=== PATIENT | female | born 2000 | race Two or more races ===

== ENCOUNTER 2020-05-01 17:53 | Outpatient (CLI) | payer OTHER ==
[2020-05-01 18:30] LABS: APPEARANCE,URINE SLIGHTLY-CLOUDY; BILIRUBIN,URINE NEGATIVE (NEGATIVE); COLOR,URINE YELLOW; GLUCOSE, URINE NEGATIVE (NEGATIVE); KETONES,URINE NEGATIVE (NEGATIVE); LEUKOCYTE ESTERASE,URINE NEGATIVE (NEGATIVE); NITRITE,URINE NEGATIVE (NEGATIVE); PROTEIN,URINE NEGATIVE (NEGATIVE); URINE SPECIFIC GRAVITY 1.019; UROBILINOGEN,URINE NEGATIVE mg/dL (<2.0)
[2020-05-01 18:44] LABS: URINE AMPHETAMINES SCREEN NEGATIVE; URINE BARBITURATES SCREEN NEGATIVE; URINE BENZODIAZEPINES SCREEN NEGATIVE; URINE COCAINE SCREEN NEGATIVE; URINE MARIJUANA (THC) SCREEN NEGATIVE; URINE METHADONE SCREEN NEGATIVE; URINE PHENCYCLIDINE SCREEN NEGATIVE
--- NOTE | 2020-05-01 20:42 | Non Stress Test Report ---
Non Stress Test Datetime Report Generated by CPN: 05/01/2020 20:41 DEMOGRAPHIC EGA NST: 40.0 INDICATION Indication for Study (NST) Other: Labor check VITAL SIGNS Temperature - NST: 99.3 Pulse - NST: 77 RESP - NST: 18 NBPSYS NST: 117 NBPDIA NST: 63 MONITORING Monitor Explained: Monitor Explained; Test Explained; Patient Verbalized Understanding Time on Monitor: 05/01/2020 18:10 Time off Monitor: 05/01/2020 18:36 NST Duration: 26 NST INTERVENTIONS NST Interventions: PO Hydration Physician Notified NST: Dr. Flores BABY A: [id number] BABY A Movement : Present Contraction Frequency : Irreg FHR Baseline : 140 Accelerations : 15X15 Decelerations : None Variability : Moderate 6-25bpm NST Review: Meets Criteria for Reactive NST NST Review and Verified By : Narcisa David RN NST Results: Reactive NST REPORT Report Trigger: Send Report
== END 2020-05-01 20:05 | disposition home or self-care (01) ==
LOC: LC 17:53
PROVIDERS: ATTEND Obstetrics & Gynecology Gynecology
DX: O47.1 False labor at or after 37 completed weeks of gestation (principal); Z3A.40 40 weeks gestation of pregnancy; Z88.0 Allergy status to penicillin
CPT/HCPCS: 59025; 80307; 81005

== ENCOUNTER 2020-05-02 04:16 | Outpatient (CLI) | payer OTHER ==
[2020-05-02 05:05] LABS: APPEARANCE,URINE CLEAR; BILIRUBIN,URINE NEGATIVE (NEGATIVE); COLOR,URINE YELLOW; GLUCOSE, URINE NEGATIVE (NEGATIVE); KETONES,URINE NEGATIVE (NEGATIVE); LEUKOCYTE ESTERASE,URINE NEGATIVE (NEGATIVE); NITRITE,URINE NEGATIVE (NEGATIVE); PROTEIN,URINE NEGATIVE (NEGATIVE); URINE SPECIFIC GRAVITY 1.011; UROBILINOGEN,URINE NEGATIVE mg/dL (<2.0)
[2020-05-02 05:26] LABS: URINE AMPHETAMINES SCREEN NEGATIVE; URINE BARBITURATES SCREEN NEGATIVE; URINE BENZODIAZEPINES SCREEN NEGATIVE; URINE COCAINE SCREEN NEGATIVE; URINE MARIJUANA (THC) SCREEN NEGATIVE; URINE METHADONE SCREEN NEGATIVE; URINE PHENCYCLIDINE SCREEN NEGATIVE
[2020-05-02] MEDS ORDERED: HYDROXYZINE PAMOATE 50 MG CAPSULE ONE (05:27)
[2020-05-02] MEDS ORDERED: HYDROXYZINE PAMOATE 50 MG CAPSULE PO ONE (05:30)
--- NOTE | 2020-05-02 05:46 | Non Stress Test Report ---
Non Stress Test Datetime Report Generated by CPN: 05/02/2020 05:45 DEMOGRAPHIC EGA NST: 40.1 INDICATION Indication for Study (NST) Other: IUP @ 40.1 wks VITAL SIGNS Temperature - NST: 96.9 Pulse - NST: 72 RESP - NST: 17 NBPSYS NST: 107 NBPDIA NST: 57 URINE RESULTS Urine Protein, NST: Negative Urine Ketones - NST: Negative Urine Glucose - NST: Negative Urine Blood - NST: Positive MONITORING Monitor Explained: Monitor Explained; Test Explained; Patient Verbalized Understanding Time on Monitor: 05/02/2020 04:34 Time off Monitor: 05/02/2020 05:26 NST Duration: 52 NST INTERVENTIONS NST Interventions: PO Hydration; Reposition Patient Physician Notified NST: Dr. Flores BABY A: [id number] BABY A Movement : Present Contraction Frequency : irregular FHR Baseline : 130 Accelerations : 15X15 Decelerations : None Variability : Moderate 6-25bpm NST Review: Meets Criteria for Reactive NST NST Review and Verified By : Alisson Medrano RN NST Results: Reactive NST REPORT Report Trigger: Send Report
== END 2020-05-02 05:45 | disposition home or self-care (01) ==
LOC: LC 04:16
PROVIDERS: ATTEND Obstetrics & Gynecology Gynecology
DX: O47.1 False labor at or after 37 completed weeks of gestation (principal); Z3A.40 40 weeks gestation of pregnancy; Z88.0 Allergy status to penicillin
CPT/HCPCS: 59025; 80307; 81005

== ENCOUNTER 2020-05-03 10:45 | Inpatient (IN) | payer OTHER ==
[2020-05-03 11:24] LABS: APPEARANCE,URINE SLIGHTLY-CLOUDY; BILIRUBIN,URINE NEGATIVE (NEGATIVE); COLOR,URINE YELLOW; GLUCOSE, URINE NEGATIVE (NEGATIVE); KETONES,URINE NEGATIVE (NEGATIVE); LEUKOCYTE ESTERASE,URINE TRACE (NEGATIVE); NITRITE,URINE NEGATIVE (NEGATIVE); PROTEIN,URINE NEGATIVE (NEGATIVE); URINE SPECIFIC GRAVITY 1.008; UROBILINOGEN,URINE NEGATIVE mg/dL (<2.0)
[2020-05-03 11:42] LABS: URINE AMPHETAMINES SCREEN NEGATIVE; URINE BARBITURATES SCREEN NEGATIVE; URINE BENZODIAZEPINES SCREEN NEGATIVE; URINE COCAINE SCREEN NEGATIVE; URINE MARIJUANA (THC) SCREEN NEGATIVE; URINE METHADONE SCREEN NEGATIVE; URINE PHENCYCLIDINE SCREEN NEGATIVE
[2020-05-03] MEDS ORDERED: RINGERS SOLUTION,LACTATED 1,000 ML IV PRN (12:17)
[2020-05-03] MEDS ORDERED: RINGERS SOLUTION,LACTATED 1,000 ML IV ONE (12:17)
[2020-05-03 13:03] LABS: ABSOLUTE LYMPHOCYTES (AUTO) 1.6 10^3/uL (0.5-4.7); ABSOLUTE MONOCYTES (AUTO) 0.5 10^3/uL (0.1-1.4); ABSOLUTE NEUT (AUTO) 7.4 10^3/uL (1.7-8.2); BASOPHILS % (AUTO) 0.4 % (0-2); EOSINOPHILS % (AUTO) 0.1 % (0-6); HEMATOCRIT 37.9 % (36.0-47.0); HEMOGLOBIN 13.1 g/dL (12.0-15.5); LYMPHOCYTES % (AUTO) 17.2 % (13-45); MEAN CORPUSCULAR HEMOGLOBIN 30.4 pg (27.0-33.4); MEAN CORPUSCULAR HGB CONC 34.6 g/dL (32.0-36.0); MEAN CORPUSCULAR VOLUME 88 fl (80-97); MONOCYTES % (AUTO) 5.7 % (3-13); PLATELET COUNT 211 10^3/uL (150-450); RED BLOOD COUNT 4.32 10^6/uL (3.72-5.28); RED CELL DISTRIBUTION WIDTH 15.1 % (11.5-14.0); SEGMENTED NEUTROPHILS % (AUTO) 76.6 % (42-78); TOTAL CELLS COUNTED % (AUTO) 100 %; WHITE BLOOD COUNT 9.6 10^3/uL (4.0-10.5)
[2020-05-03] MEDS ORDERED: OXYTOCIN 10 UNIT/ML VIAL ONE (14:22)
[2020-05-03] MEDS ORDERED: EPHEDRINE SULFATE INJ 50 MG/1 ML AMPULE ONE (14:22)
[2020-05-03] MEDS ORDERED: MISOPROSTOL 0.2 MG TABLET ONE (14:22)
[2020-05-03] MEDS ORDERED: OXYTOCIN/0.9 % SODIUM CHLORIDE 30 UNIT/500 ML RTUINJ ONE (14:23)
[2020-05-03] MEDS ORDERED: ROPIVACAINE HCL 0.2% INJ/PF (2 MG/ML) 20 ML SDV ONE (14:23)
[2020-05-03] MEDS ORDERED: FENTANYL/BUPIVACAINE/NS/PF 300 MCG/150 ML RTUINJ EPI ONE (14:23)
[2020-05-03] MEDS ORDERED: LIDOCAINE 1% INJ-PF (10 MG/ML) 30 ML SDV ONE (14:23)
--- NOTE | 2020-05-03 17:39 | Admission Physical ---
Datetime Report Generated by CPN: 05/03/2020 17:39 CURRENT ADMISSION Chief Complaint: Uterine Contractions; Suspected Ruptured Membranes Chief Complaint Other: G1 presented wtih contractions and during labor check time interval her water broke. Clear, large amount. Admit Impression : Term, Intrauterine ; Active Labor; Ruptured Membranes Admit Plan: Admit to Unit; Initiate Labor Protocol; Initiate Labor Induction Protocol ALLERGIES Medication Allergies: Yes Medication Allergies: Penicillins (05/02/2020) Latex: Unknown Food Allergies: n/a Environmental Allergies: n/a OBSTETRICAL HISTORY EDC: 05/01/2020 00:00 : 1 Para: 0 Term: 0 : 0 SAB: 0 IAB: 0 Ectopic: 0 Livin Multiple Births: 0 Gestational Diabetes: No Rh Sensitization: No Incompetent Cervix: No RAHEEM: No Infertility: No ART Treatment: No Uterine Anomaly: No IUGR: No Hx Previous C/S: No Macrosomia: No Hx Loss/Stillborn: No PIH: No Hx : No Placenta Previa/Abruption: No Depression/PP Depression: No PTL/PROM: No Post Hemorrhage: No Current Procedures: Ultrasound Obstetrical History Comments: g1- current SEE RECORDS Alcohol: No Marijuana : No Cocaine: No Other Illicit Drugs: No Cigarettes: Never Smoker. 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 Heart Disease: No Hosp/Surgery: No Autoimmune Disorder: No Anesthetic Complications: No Kidney Disease: No Abnormal Pap Smear: No Neuro/Epilepsy: No Psychiatric Disorders: No Other Medical Diseases: No Hepatitis/Liver Disease: No Significant Family History: No Varicosities/Phlebitis: No Trauma/Violence : No Thyroid Dysfunction: No Medical History Comments: bells palsy 2018 INFECTIOUS HISTORY Gonorrhea: No Genital Herpes: No Chlamydia: No Tuberculosis: No Syphilis: No Hepatitis: No HIV/AIDS Exposure: No Rash or Viral Illness: No HPV: No PHYSICAL EXAM General: Normal HEENT: Normal Neurologic: Normal Thyroid: Normal Heart: Normal Lungs: Normal Breast: Normal Back: Normal Abdomen: Normal Genitourinary Exam: Normal Extremities: Normal DTRs: Normal Pelvic Type: Adequate Vital Signs: Reviewed; Within Normal Limits VAGINAL EXAM Dilatation: 4 Effacement: 100 Station: -1 Contraction Comments: regular every 5-7 minutes MEMBRANES Membranes: Ruptured Amniotic Fluid Color: Clear FETUS A EGA: 40.2 Monitoring: External US FHR- Baseline: 155 Variability: Moderate 6-25bpm Accelerations: 15X15 Decelerations: None FHR Category: Category I Presentation: Vertex Admit Comment: G1 at 40.2 wks EGA in active labor iwth SROM, clear fluid -Admit to LDR -NPO and IVFs: LR bolus 1 liter and continue at 125cc/hr -CEFM and toco -SROM at 1309 -GBS negative -Desires Epidural for pain mgt -Anticipate PLANS FOR LABOR AND DELIVERY Labor and Delivery: None Pain Management: Epidural Feeding Preference: Breast Benefit of Breast Feed Discussed: Yes Circumcision: Yes INFORMED CONSENT Signature: with User ID: Morgan : with User ID: Morgan
[2020-05-03] MEDS ORDERED: MAGNESIUM HYDROXIDE SUSP 30 ML UDCUP PO PRN (20:49)
[2020-05-03] MEDS ORDERED: DIPHENHYDRAMINE HCL 25 MG CAPSULE PO PRN (20:49)
[2020-05-03] MEDS ORDERED: PROMETHAZINE HCL 25 MG TABLET PO PRN (20:49)
[2020-05-03] MEDS ORDERED: ACETAMINOPHEN 650 MG SUPP.RECT PR PRN (20:49)
[2020-05-03] MEDS ORDERED: PSEUDOEPHEDRINE HCL 30 MG TABLET PO PRN (20:49)
[2020-05-03] MEDS ORDERED: PROMETHAZINE HCL INJ 25 MG/1 ML VIAL IV PRN (20:49)
[2020-05-03] MEDS ORDERED: BENZOCAINE/MENTHOL AEROSOL SPRAY 56 ML TOP PRN (20:49)
[2020-05-03] MEDS ORDERED: PROMETHAZINE HCL 25 MG SUPP.RECT PR PRN (20:49)
[2020-05-03] MEDS ORDERED: MEASLES,MUMPS&RUBELLA VACC/PF 0.5 ML VIAL SUBCUT PRN (20:49)
[2020-05-03] MEDS ORDERED: ACETAMINOPHEN WITH CODEINE #3 TABLET PO PRN ×2 (20:49)
[2020-05-03] MEDS ORDERED: DIBUCAINE 1% OINTMENT 28 GM TP PRN (20:49)
[2020-05-03] MEDS ORDERED: NA PHOS,M-B/NA PHOS,DI-BA (ADULT) 133 ML ENEMA PR PRN (20:49)
[2020-05-03] MEDS ORDERED: DIPH/PERTUSS(ACELL)/TETANUS VAC/PF 0.5 ML SYR (>=10YO) IM PRN (20:49)
[2020-05-03] MEDS ORDERED: ACETAMINOPHEN 325 MG TABLET PO PRN (20:49)
[2020-05-03] MEDS ORDERED: OXYTOCIN/0.9 % SODIUM CHLORIDE 30 UNIT/500 ML RTUINJ IV PRN (20:49)
[2020-05-03] MEDS ORDERED: ZOLPIDEM TARTRATE 5 MG TABLET PO PRN (20:49)
[2020-05-03] MEDS ORDERED: GLYCERIN/WITCH HAZEL LEAF 1 EACH MED..WIPE TP PRN (20:49)
[2020-05-03] MEDS ORDERED: IBUPROFEN 800 MG TABLET ONE (21:14)
[2020-05-03] MEDS ORDERED: CLINDAMYCIN 900 MG/D5W RTU 900 MG/50 ML RTUPB IV ONE (21:14)
[2020-05-03] MEDS: IBUPROFEN 800 MG TABLET PO SCH (21:20)
[2020-05-03] MEDS ORDERED: CLINDAMYCIN 900 MG/D5W RTU 900 MG/50 ML RTUPB IV SCH (22:00)
[2020-05-04] MEDS: FAMOTIDINE 20 MG TABLET PO SCH ×3 (02:15→21:13)
[2020-05-04] MEDS: IBUPROFEN 800 MG TABLET PO SCH ×3 (05:18→21:13)
[2020-05-04 07:38] LABS: HEMATOCRIT 29.8 % (36.0-47.0); MEAN CORPUSCULAR HEMOGLOBIN 30.6 pg (27.0-33.4); MEAN CORPUSCULAR HGB CONC 34.8 g/dL (32.0-36.0); MEAN CORPUSCULAR VOLUME 88 fl (80-97); PLATELET COUNT 176 10^3/uL (150-450); RED BLOOD COUNT 3.39 10^6/uL (3.72-5.28); RED CELL DISTRIBUTION WIDTH 15.3 % (11.5-14.0); WHITE BLOOD COUNT 13.3 10^3/uL (4.0-10.5)
[2020-05-04 07:39] LABS: HEMOGLOBIN 10.4 g/dL (12.0-15.5)
[2020-05-04] MEDS: SENNOSIDES/DOCUSATE 8.6-50 MG 1 EACH TABLET PO SCH (10:12)
[2020-05-04] MEDS: PRENATAL VITAMIN W DHA CAPSULE PO SCH (10:12)
[2020-05-04] MEDS: DOCUSATE SODIUM 100 MG CAPSULE PO SCH ×2 (10:13→18:24)
[2020-05-04] MEDS: FERROUS SULFATE 325 MG TABLET PO SCH ×2 (10:13→18:24)
--- NOTE | 2020-05-04 11:06 | PDOC PROGRESS REPORT ---
Subjective-OB Progress Note for:: 05/04/20 Subjective: Doing well, resting, baby at BS, breast feeding Physical Exam (OB) Vital Signs: Temp Pulse Resp BP Pulse Ox 97.9 F 71 18 107/64 100 05/04/20 09:02 05/04/20 07:16 05/04/20 07:16 05/04/20 07:16 05/04/20 07:16 Intake & Output 05/03/20 05/04/20 05/05/20 06:59 06:59 06:59 Intake Total 50 Balance 50 Weight 79.9 kg - PIH/Pre-Eclampsia DTR's: 2 + Clonus: Negative Headache: Absent Epigastric Pain: No Visual Changes: No - Maternal Morbidity 59. Maternal Morbidity (serious complications experinced by the mother associated with labor and delivery: None of the above - Lochia Lochia Amount: Scant < 10 ml Lochia Color: Rubra/Red - Abdomen Description: Tender, Soft Hernia Present: No Fundal Description: Firm, Midline Fundal Height: u/u - u/2 Objective-Diagnostic Laboratory: 05/04/20 07:08 05/03/20 05/03/20 05/03/20 10:51 12:40 12:40 WBC 9.6 RBC 4.32 Hgb 13.1 Hct 37.9 MCV 88 MCH 30.4 MCHC 34.6 RDW 15.1 H Plt Count 211 Seg Neutrophils % 76.6 Urine Color YELLOW Urine Appearance SLIGHTLY-CLOUDY Urine pH 7.0 Ur Specific [place] 1.008 Urine Protein NEGATIVE Urine Glucose (UA) NEGATIVE Urine Ketones NEGATIVE Urine Blood SMALL H Urine Nitrite NEGATIVE Ur Leukocyte Esterase TRACE H Blood Type O POSITIVE Antibody Screen NEGATIVE 05/04/20 07:08 WBC 13.3 H RBC 3.39 L Hgb 10.4 L D Hct 29.8 L MCV 88 MCH 30.6 MCHC 34.8 RDW 15.3 H Plt Count 176 Seg Neutrophils % Urine Color Urine Appearance Urine pH Ur Specific [place] Urine Protein Urine Glucose (UA) Urine Ketones Urine Blood Urine Nitrite Ur Leukocyte Esterase Blood Type Antibody Screen Assessment and Plan(PN) - Assessment and Plan (1) Maternal fever during labor, delivered Is this a current diagnosis for this admission?: Yes (2) Delivery normal Is this a current diagnosis for this admission?: Yes - Time Spent with Patient Time with patient: Less than 15 minutes Medications reviewed and adjusted accordingly: Yes - Disposition Anticipated Discharge Disposition: Home, Self Care Anticipated Discharge Timeframe: within 24 hours
[2020-05-05] MEDS: IBUPROFEN 800 MG TABLET PO SCH ×2 (05:41→13:24)
[2020-05-05] MEDS: SENNOSIDES/DOCUSATE 8.6-50 MG 1 EACH TABLET PO SCH (10:30)
[2020-05-05] MEDS: DOCUSATE SODIUM 100 MG CAPSULE PO SCH (10:30)
[2020-05-05] MEDS: PRENATAL VITAMIN W DHA CAPSULE PO SCH (10:30)
[2020-05-05] MEDS: FERROUS SULFATE 325 MG TABLET PO SCH (10:30)
[2020-05-05] MEDS: FAMOTIDINE 20 MG TABLET PO SCH (10:31)
--- NOTE | 2020-05-05 10:37 | PDOC DISCHARGE SUMMARY ---
Impression - Admit/DC Date/PCP Admission Date/Primary Care Provider: 05/03/20 12:27 RACHAEL FISCHER MD Discharge Date: 05/05/20 - Discharge Diagnosis (1) Active labor at term Is this a current diagnosis for this admission?: Yes (2) Delivery normal Is this a current diagnosis for this admission?: Yes (3) Maternal fever during labor, delivered Is this a current diagnosis for this admission?: Yes - Additional Information Resuscitation Status: Full Code Discharge Diet: Regular Discharge Activity: Balance Activity w/Rest, Pelvic Rest Referrals: RACHAEL FISCHER MD [Primary Care Provider] - Prescriptions: Ibuprofen [Motrin 800 mg Tablet] 800 mg PO Q8 #60 tablet Home Medications: Pnv No.95/Ferrous Fum/Folic AC [ Caplet] 1 tab PO DAILY 05/01/20 Ibuprofen [Motrin 800 mg Tablet] 800 mg PO Q8 #60 tablet 05/05/20 HPI Reason(s) for Admission: Onset of Labor Procedures: NST Intrapartum Procedure(s): Spontaneous Vaginal Delivery Complication(s): Laceration-Perineal Laceration-Degree: 1st Hospital Course 59. Maternal Morbidity (serious complications experinced by the mother associated with labor and delivery: None of the above Results Laboratory Results: WBC 13.3 10^3/uL (4.0-10.5) H 05/04/20 07:08 RBC 3.39 10^6/uL (3.72-5.28) L 05/04/20 07:08 Hgb 10.4 g/dL (12.0-15.5) L D 05/04/20 07:08 Hct 29.8 % (36.0-47.0) L 05/04/20 07:08 MCV 88 fl (80-97) 05/04/20 07:08 MCH 30.6 pg (27.0-33.4) 05/04/20 07:08 MCHC 34.8 g/dL (32.0-36.0) 05/04/20 07:08 RDW 15.3 % (11.5-14.0) H 05/04/20 07:08 Plt Count 176 10^3/uL (150-450) 05/04/20 07:08 Lymph % (Auto) 17.2 % (13-45) 05/03/20 12:40 [place] % (Auto) 5.7 % (3-13) 05/03/20 12:40 Eos % (Auto) 0.1 % (0-6) 05/03/20 12:40 Baso % (Auto) 0.4 % (0-2) 05/03/20 12:40 Absolute Neuts (auto) 7.4 10^3/uL (1.7-8.2) 05/03/20 12:40 Absolute Lymphs (auto) 1.6 10^3/uL (0.5-4.7) 05/03/20 12:40 Absolute Monos (auto) 0.5 10^3/uL (0.1-1.4) 05/03/20 12:40 Absolute Eos (auto) 0.0 10^3/uL (0.0-0.6) 05/03/20 12:40 Absolute Basos (auto) 0.0 10^3/uL (0.0-0.2) 05/03/20 12:40 Seg Neutrophils % 76.6 % (42-78) 05/03/20 12:40 Urine Color YELLOW 05/03/20 10:51 Urine Appearance SLIGHTLY-CLOUDY 05/03/20 10:51 Urine pH 7.0 (5.0-9.0) 05/03/20 10:51 Ur Specific [place] 1.008 05/03/20 10:51 Urine Protein NEGATIVE mg/dL (NEGATIVE) 05/03/20 10:51 Urine Glucose (UA) NEGATIVE mg/dL (NEGATIVE) 05/03/20 10:51 Urine Ketones NEGATIVE mg/dL (NEGATIVE) 05/03/20 10:51 Urine Blood SMALL (NEGATIVE) H 05/03/20 10:51 Urine Nitrite NEGATIVE (NEGATIVE) 05/03/20 10:51 Urine Bilirubin NEGATIVE (NEGATIVE) 05/03/20 10:51 Urine Urobilinogen NEGATIVE mg/dL (<2.0) 05/03/20 10:51 Ur Leukocyte Esterase TRACE (NEGATIVE) H 05/03/20 10:51 Urine Ascorbic Acid NEGATIVE (NEGATIVE) 05/03/20 10:51 Urine Opiates Screen NEGATIVE 05/03/20 10:51 Urine Methadone Screen NEGATIVE 05/03/20 10:51 Ur Barbiturates Screen NEGATIVE 05/03/20 10:51 Ur Phencyclidine Scrn NEGATIVE 05/03/20 10:51 Ur Amphetamines Screen NEGATIVE 05/03/20 10:51 U Benzodiazepines Scrn NEGATIVE 05/03/20 10:51 Urine Cocaine Screen NEGATIVE 05/03/20 10:51 U Marijuana (THC) Screen NEGATIVE 05/03/20 10:51 RPR NONREACTIVE (NONREACTIVE) 05/03/20 12:40 Blood Type O POSITIVE 05/03/20 12:40 Antibody Screen NEGATIVE 05/03/20 12:40 Plan Plan of Treatment: f/u at [facility] Time Spent: Less than 30 Minutes
[2020-05-05 11:22] VITALS: BP 109/64
--- NOTE | 2020-05-08 08:29 | Delivery Summary ---
Del Sum A-C Datetime Report Generated by CPN: 05/08/2020 08:29 DELIVERY PERSONNEL DELIVERY PERSONNEL: [id number] Delivery Doctor:: Jesusita Velazco MD HARDWARE DEVELOPER:: Tonya Chase CRNA Labor and Delivery Nurse:: Elana Cordova RN Labor and Delivery Nurse:: Kyung Peacock RN Dynamiter/HEALTHCARE OR MEDICAL: [facility] (Annotations: Data stored by [facility] on behalf of user) MATERNAL INFORMATION Delivery Anesthesia: Epidural Medications After Delivery: Pitocin 30 Units in 500ml NS/D5W Maternal Complications: None Provider Comments: Called to patients room as she was complete and plus 2 station, actively pushing. Patient delivered without complication -after the head, the shoulders and rest of the body followed easily. A viable male with Apgars of 8/9 at one and five minutes respectively. Cord clamping delayed for 30 seconds as infant was vigorously crying. Both mother and infant stable LABOR SUMMARY EDC: 05/01/2020 00:00 No. Babies in Womb: 1 Attempted: No Labor Anesthesia: Epidural LABOR INFORMATION Reason for Induction: Premature Rupture of Membranes Onset of Labor: 05/03/2020 12:50 Complete Dilatation: 05/03/2020 19:57 Oxytocin: Augmentation Group B Beta Strep: Negative Steroids Given: None Reason Steroids Not Administered: Not Applicable MEMBRANES Membranes Rupture Method: Spontaneous Rupture of Membranes: 05/03/2020 13:09 Rupture of Membranes: 05/03/2020 13:09 Length of Rupture (hr): 7.32 Length of Rupture (hr): 7.32 Amniotic Fluid Color: Clear Amniotic Fluid Amount: Small Amniotic Fluid Odor: Normal STAGES OF LABOR Stage 1 hr: 7 Stage 1 min: 7 Stage 2 hr: 0 Stage 2 min: 31 Stage 3 hr: 0 Stage 3 min: 5 Total Time in Labor hr: 7 Total Time in Labor min: 43 VAGINAL DELIVERY Episiotomy: None Laceration #1: Perineal Laceration Extension #1: N/A Laceration Repair: Yes Laceration Repair Note: 3-0 chromic in figure of eight stitch Sponge Count Correct: Yes Sharps Count Correct: Yes CSECTION DELIVERY Primary Indication: N/A Secondary Indication: N/A CSection Incision: N/A BABY A INFORMATION Infant Delivery Date/Time: 05/03/2020 20:28 Method of Delivery: Vaginal Method of Delivery: Vaginal Nurse Controlled Delivery: No Born in Route : No : N/A Forceps: N/A Vacuum Extraction: N/A Shoulder Dystocia : No PRESENTATION/POSITION BABY A Presentation: Cephalic Cephalic Presentation: Vertex Vertex Position: Right Occipital Anterior Breech Presentation: N/A PLACENTA INFORMATION BABY A Placenta Delivery Time : 05/03/2020 20:33 Placenta Method of Delivery: Spontaneous Placenta Method of Delivery: Spontaneous Placenta Status: Delivered SCORES BABY A Heart Rate 1 min: >100 bpm Resp Effort 1 min: Good Cry Reflex Irritability 1 min: Cough or Sneeze or Pulls Away Muscle Tone 1 min: Active Motion Color 1 min: Blue/Pale Resuscitation Effort 1 min: Tactile Stimulation SCORE 1 MIN: 8 Heart Rate 5 min: >100 bpm Resp Effort 5 min: Good Cry Reflex Irritability 5 min: Cough or Sneeze or Pulls Away Muscle Tone 5 min: Active Motion Color 5 min: Body [place], Extremities Blue Resuscitation Effort 5 min: Tactile Stimulation SCORE 5 MIN: 9 INFORMATION BABY A Gestational Age at Delivery: 40.2 Gestational Status: Full Term- 39- 40.6 Weeks Infant Outcome : Liveborn Infant Condition : Stable Infant Sex: Male Sex: Male IDENTIFICATION BABY A Infant Verification Date/Time: 05/03/2020 20:49 ID Band Number: [id number] Mother's Name Verified: Yes Infant RN Verifying Infant: M. Tierney, RN and A. Carol, RN WEIGHT/LENGTH BABY A Infant Birthweight (gm): 3353 Weight (lb): 7 Weight (oz): 6 Infant Length (in): 20.25 Infant Length (cm): 51.44 CORD INFORMATION BABY A No. Cord Vessels: 3 Nuchal Cord : N/A Cord Blood Taken: Yes-For Eval (Mom's Blood Type - or O+) Suction: None ASSESSMENT BABY A Complications: Multiple Variable Decels Physical Findings at Delivery: Within Normal Limits Infant Respirations: Appears Normal Skin to Skin: Yes Transferred To: Remains with Mother BABY B INFORMATION : N/A SIGNATURES Signature: with User ID: Morgan : with User ID: [email or web address]
== END 2020-05-05 13:45 | disposition home or self-care (01) | DRG 806 ==
LOC: LC 10:45 → LR 12:27 → 2S 22:41
PROVIDERS: ADMIT Obstetrics & Gynecology; ATTEND Obstetrics & Gynecology
PROC: 10E0XZZ Delivery of Products of Conception, External Approach (ICD-10-PCS; principal; 2020-05-03)
PROC: 0HQ9XZZ Repair Perineum Skin, External Approach (ICD-10-PCS; 2020-05-03)
DX: O42.02 Full-term premature rupture of membranes, onset of labor within 24 hours of rupture (principal); O75.2 Pyrexia during labor, not elsewhere classified; Z37.0 Single live birth; O70.0 First degree perineal laceration during delivery; O76 Abnormality in fetal heart rate and rhythm complicating labor and delivery; Z3A.40 40 weeks gestation of pregnancy
CPT/HCPCS: 1967; 36415; 59025; 80307; 81005; 85025; 85027; 86592; 86850; 86900; 86901; J2590; J2795; J3010; J3490